=== PATIENT | female | born 1995 | race Caucasian/White ===

== ENCOUNTER 2018-03-22 18:30 | Emergency (ER) | payer OTHER ==
[2018-03-22] MEDS: ONDANSETRON (ODT) 4 MG TAB ODT (19:40)
[2018-03-22] MEDS: AL HYDROX/MG HYDROX/SIMETH 30 ML CUP PO (19:40)
[2018-03-22 19:54] LABS: URINE BLOOD (Dip) POC Negative (NEGATIVE); URINE GLUCOSE (Dip) POC Negative (NEGATIVE); URINE KETONES (Dip) POC Trace (NEGATIVE); URINE LEUKOCYTE EST (Dip) POC Negative (NEGATIVE); URINE NITRITE (Dip) POC Negative (NEGATIVE); URINE TOTAL PROTEIN POC 1+ (NEGATIVE)
== END 2018-03-22 20:54 | disposition home or self-care (01) ==
LOC: FTE 18:30
DX: K52.29 Other allergic and dietetic gastroenteritis and colitis (principal); R40.2412 Glasgow coma scale score 13-15, at arrival to emergency department; Z91.018 Allergy to other foods
CPT/HCPCS: 81003; 81025; 99283

== ENCOUNTER 2018-11-27 07:02 | Emergency (ER) | payer OTHER ==
[2018-11-27 08:46] LABS: URINE BLOOD (Dip) POC Trace-lysed (NEGATIVE); URINE GLUCOSE (Dip) POC Negative (NEGATIVE); URINE KETONES (Dip) POC 1+ (NEGATIVE); URINE LEUKOCYTE EST (Dip) POC 2+ (NEGATIVE); URINE NITRITE (Dip) POC Negative (NEGATIVE); URINE TOTAL PROTEIN POC Negative (NEGATIVE)
[2018-11-27 08:46] LABS: URINE PH (Dip) POC 6.5 (5.0-8.5)
[2018-11-27] MEDS: CEFTRIAXONE 250 MG INJ IM (08:53)
[2018-11-27] MEDS: AZITHROMYCIN 250 MG TAB PO (08:53)
[2018-11-27 09:34] LABS: ADD UMIC YES; UR ASCORBIC ACID NEGATIVE (NEGATIVE); UR BACTERIA FEW /HPF (NONE SEEN); UR BILIRUBIN (Dip) NEGATIVE (NEGATIVE); UR BLOOD (Dip) 1+ mg/dL (NEGATIVE); UR CLARITY SLIGHTLY CLOUDY (CLEAR); UR COLOR YELLOW (YELLOW); UR GLUCOSE (Dip) NEGATIVE (NEGATIVE); UR KETONES (Dip) 1+ mg/dL (NEGATIVE); UR LEUKOCYTE ESTERASE (Dip) 1+ Leu/ul (NEGATIVE); UR NITRITE (Dip) NEGATIVE (NEGATIVE); UR RBC 12 /HPF (0-5); UR SPECIFIC GRAVITY (Dip) 1.006 (1.003-1.030); UR SQUAMOUS EPITHELIAL CELL MODERATE /HPF (FEW); UR TOTAL PROTEIN (Dip) NEGATIVE (NEGATIVE); UR UROBILINOGEN (Dip) NEGATIVE (NEGATIVE); UR WBC 6 /HPF (0-5)
== END 2018-11-27 11:02 | disposition home or self-care (01) ==
LOC: FTE 07:02
DX: N76.0 Acute vaginitis (principal); N39.0 Urinary tract infection, site not specified; Z20.2 Contact with and (suspected) exposure to infections with a predominantly sexual mode of transmission
CPT/HCPCS: 81001; 81003; 81025; 87070; 87210; 87591; 96372; 99284-25